=== PATIENT | male | born 1990 | race Caucasian/White ===

== ENCOUNTER 2021-10-22 15:20 | Inpatient (IN) | payer MEDICAID ==
[~2021-10-22] VITALS: Ht 175.3 cm; Wt 92.1 kg
[2021-10-22] MEDS ORDERED: SODIUM CHLORIDE 0.9% 1,000 ML IV ONE ×2 (15:45)
[2021-10-22 16:15] LABS: CHLORIDE 70 mEq/L (98-107)
[2021-10-22 16:19] LABS: BASOPHILS % 0.2 % (0.0-2.0); EOSINOPHILS % 0.1 % (0.0-5.0); HEMATOCRIT. 51.4 % (42.0-52.0); HEMOGLOBIN. 18.2 g/dL (14.0-18.0); LYMPHOCYTES % 16.7 % (20.0-50.0); MEAN CORPUSCULAR HEMOGLOBIN 33.6 pg (28.0-32.0); MONOCYTES % 11.5 % (2.0-8.0); NEUTROPHILS % 71.5 % (40.0-76.0); PLATELET 205 x1000/uL (130-400); RED BLOOD CELL COUNT 5.41 mill/uL (4.7-6.1); RED CELL DISTRIBUTION WIDTH 14.4 % (11.6-14.6)
[2021-10-22] MEDS ORDERED: POTASSIUM CHLORIDE INJ 40 MEQ in DEXT 5% WATER 250 ML IV ONE (16:30)
[2021-10-22] MEDS ORDERED: KCL 20MEQ/100ML X 2 FOR TOTAL KCL 40MEQ/200ML IV SCH (16:30)
[2021-10-22] MEDS ORDERED: SODIUM CHLORIDE 0.9% 1,000 ML IV SCH (21:30)
[2021-10-23 02:21] LABS: CREATINE KINASE 799 IU/L (39-308)
[2021-10-23] MEDS ORDERED: MORPHINE SULFATE 2 MG/ML CPJ (NOT FOR IM USE) IV SCH (04:30)
[2021-10-23] MEDS ORDERED: NALOXONE HCL 0.4MG/ML VIAL IV PRN ×2 (07:15→11:30)
[2021-10-23] MEDS ORDERED: HYDR10TA34 MT (07:22)
[2021-10-23] MEDS ORDERED: RISP0.5T65 MT (07:22)
[2021-10-23] MEDS ORDERED: TRAZ-251 MT (07:22)
[2021-10-23] MEDS ORDERED: FLUO40CA8 MT (07:22)
[2021-10-23 08:00] VITALS: BP 105/44
[2021-10-23] MEDS: SODIUM CHLORIDE 0.9% 1,000 ML IV SCH ×2 (08:59→21:20)
[2021-10-23 09:45] LABS: HEMATOCRIT. 42.1 % (42.0-52.0); HEMOGLOBIN. 14.8 g/dL (14.0-18.0); MEAN CORPUSCULAR HEMOGLOBIN 33.3 pg (28.0-32.0); MEAN CORPUSCULAR VOLUME 94.7 fL (80.0-94.0); MEAN PLATELET VOLUME 10.1 fl (7.4-10.4); PLATELET 137 x1000/uL (130-400); RED BLOOD CELL COUNT 4.45 mill/uL (4.7-6.1); RED CELL DISTRIBUTION WIDTH 14.4 % (11.6-14.6)
[2021-10-23] MEDS: HYDROCODONE/ACETAMINOPHEN 10/325MG TABLET PO PRN (09:51)
[2021-10-23 10:30] LABS: INR 1.1; PROTHROMBIN TIME 11.5 sec (9.6-11.0)
[2021-10-23 12:00] VITALS: BP 96/48
[2021-10-23 12:43] LABS: CLARITY URINE CLEAR (CLEAR); COLOR URINE YELLOW (YELLOW); KETONES URINE NEGATIVE (NEGATIVE); LEUKOCYTE ESTERASE URINE 3+ (NEGATIVE); NITRITE URINE NEGATIVE (NEGATIVE); OCCULT BLOOD URINE 2+ (NEGATIVE); PH URINE 6.5 (4.5-8.0); PROTEIN URINE 2+ (NEGATIVE)
[2021-10-23 13:16] LABS: *BENZODIAZEPINES SCREEN URINE NEGATIVE (NEGATIVE); *COCAINE SCREEN URINE NEGATIVE (NEGATIVE); METHADONE URINE SCREEN NEGATIVE (NEGATIVE); OPIATES URINE SCREEN NEGATIVE (NEGATIVE)
[2021-10-23 13:17] LABS: *BARBITURATES SCREEN URINE NEGATIVE (NEGATIVE); CANNABINOID URINE SCREEN NEGATIVE (NEGATIVE); PHENCYCLIDINE URINE SCREEN NEGATIVE (NEGATIVE)
[2021-10-23 13:20] LABS: HEPATITIS B SURFACE ANTIGEN NEGATIVE
[2021-10-23 13:21] LABS: *AMPHETAMINES SCREEN URINE NEGATIVE (NEGATIVE)
[2021-10-23 14:11] LABS: PLATELET ESTIMATE NORMAL
[2021-10-23 16:00] VITALS: BP 101/50
[2021-10-23 20:00] VITALS: BP 97/48
[2021-10-23] MEDS: ACETAMINOPHEN 325MG TABLET PO PRN (20:20)
[2021-10-23] MEDS: FAMOTIDINE 20MG TABLET PO SCH (20:21)
[2021-10-23] MEDS ORDERED: TRAZODONE HCL 50MG TABLET PO SCH (21:00)
[2021-10-23] MEDS: CEFTRIAXONE 1,000 MG in DEXTROSE 5% WATER 50 ML IV SCH (21:54)
[2021-10-24] VITALS (7 sets, daily range): BP systolic 91–128; BP diastolic 44–70
[2021-10-24 08:08] LABS: HIV SCREEN 4G Non Reactive (Non Reactive)
[2021-10-24] MEDS: ACETAMINOPHEN 325MG TABLET PO PRN (08:47)
[2021-10-24 09:06] LABS: HEMATOCRIT. 41.2 % (42.0-52.0); MEAN CORPUSCULAR HEMOGLOBIN 34.3 pg (28.0-32.0); MEAN CORPUSCULAR VOLUME 94.2 fL (80.0-94.0); MEAN PLATELET VOLUME 10.1 fl (7.4-10.4); PLATELET 138 x1000/uL (130-400); RED BLOOD CELL COUNT 4.37 mill/uL (4.7-6.1); RED CELL DISTRIBUTION WIDTH 14.5 % (11.6-14.6)
[2021-10-24] MEDS ORDERED: POTASSIUM CHLORIDE 20MEQ TABLET SR PO SCH (09:45)
[2021-10-24] MEDS: SODIUM CHLORIDE 0.9% 1,000 ML IV SCH ×2 (10:40→20:39)
[2021-10-24 14:08] LABS: ANTI-NUCLEAR ANTIBODIES DIRECT Negative (Negative)
[2021-10-24] MEDS: HYDROCODONE/ACETAMINOPHEN 10/325MG TABLET PO PRN (17:37)
[2021-10-24] MEDS: FLUOXETINE HCL 20MG CAPSULE PO SCH (19:26)
[2021-10-24] MEDS: FAMOTIDINE 20MG TABLET PO SCH (20:38)
[2021-10-24] MEDS: CEFTRIAXONE 1,000 MG in DEXTROSE 5% WATER 50 ML IV SCH (20:39)
[2021-10-24] MEDS ORDERED: TRAZODONE HCL 50MG TABLET PO SCH (21:00)
[2021-10-24 21:09] LABS: PLATELET ESTIMATE NORMAL
[2021-10-25 04:05] VITALS: BP 99/58
[2021-10-25 07:13] LABS: HEMATOCRIT. 43.3 % (42.0-52.0); HEMOGLOBIN. 14.9 g/dL (14.0-18.0); MEAN CORPUSCULAR HEMOGLOBIN 33.1 pg (28.0-32.0); MEAN PLATELET VOLUME 9.4 fl (7.4-10.4); PLATELET 146 x1000/uL (130-400); RED BLOOD CELL COUNT 4.51 mill/uL (4.7-6.1); RED CELL DISTRIBUTION WIDTH 14.2 % (11.6-14.6)
[2021-10-25 08:00] VITALS: BP 105/63
[2021-10-25] MEDS: FLUOXETINE HCL 20MG CAPSULE PO SCH (09:33)
[2021-10-25] MEDS: SODIUM CHLORIDE 0.9% 1,000 ML IV SCH ×2 (09:33→13:20)
[2021-10-25] MEDS: HYDROCODONE/ACETAMINOPHEN 10/325MG TABLET PO PRN (09:33)
[2021-10-25 11:57] LABS: PLATELET ESTIMATE NORMAL
[2021-10-25 12:00] VITALS: BP 109/61
[2021-10-25] MEDS ORDERED: CEPH500C2 MT (13:51)
[2021-10-25 14:59] VITALS: BP 109/61
== END 2021-10-25 18:04 | disposition home or self-care (01) | DRG 720 ==
LOC: ER 15:20 → MICUSO 17:38 → EDBEDREQTM 17:43 → EDBEDREQ 17:43 → 6WST 10-23 07:06
PROVIDERS: ADMIT Internal Medicine; ATTEND Internal Medicine
DX: A41.9 Sepsis, unspecified organism (principal); N17.0 Acute kidney failure with tubular necrosis; R65.21 Severe sepsis with septic shock; E87.1 Hypo-osmolality and hyponatremia; G90.8 Other disorders of autonomic nervous system; E87.8 Other disorders of electrolyte and fluid balance, not elsewhere classified; E87.6 Hypokalemia; E86.9 Volume depletion, unspecified; D72.821 Monocytosis (symptomatic); N20.0 Calculus of kidney; Z20.822 Contact with and (suspected) exposure to COVID-19; I12.9 Hypertensive chronic kidney disease with stage 1 through stage 4 chronic kidney disease, or unspecified chronic kidney disease; N18.9 Chronic kidney disease, unspecified; N39.0 Urinary tract infection, site not specified; F32.A Depression, unspecified; R74.01 Elevation of levels of liver transaminase levels; Z79.899 Other long term (current) drug therapy; Z90.49 Acquired absence of other specified parts of digestive tract
CPT/HCPCS: 36415; 71045; 76770; 80048; 80053; 80061; 80305; 81003; 82436; 82533; 82550; 82570; 82962; 83930; 83935; 84156; 84295; 84300; 84443; 84540; 85025; 86038; 86160; 86705; 86709; 86803; 87340; 87389; 87426; 93005; 99291; J0696; J2270; J3480; J7030; J7060; A4315